=== PATIENT | female | born 1935 | race Caucasian/White ===

== ENCOUNTER 2019-07-26 14:26 | Outpatient (CLI) | payer MEDICARE, SELFPAY ==
--- NOTE | ~2019-07-26 | US_ITS ---
EXAMINATION: US arterial ankle brachial ind DATE: 07/26/2019 15:06 INDICATION: Polyneuropathy TECHNIQUE: Segmental pressures and plethysmographic and Doppler waveforms of the brachial and lower e xtremity arteries were obtained. COMPARISON: None. FINDINGS: Right and left brachial artery pressures of 103 mm Hg and 112 mm Hg, respectively, are concordant (no rmal difference <= 30 mmHg). The right ankle-brachial index (EFREN) is 1.35 (normal >= 0.9-1.0). The right great toe-brachial index (TBI) is 0.85 (normal >= 0.65). Arterial Doppler waveforms are biphasic with brisk systolic upstrokes at the right posterior tibial and dorsalis pedis arteries. The left EFREN is 1.40. The left TBI is 0.84. Arterial Doppler waveforms are biphasic with brisk systol ic upstrokes at both the left posterior tibial and dorsalis pedis arteries. IMPRESSION: 1. No significant arterial occlusive disease with normal bilateral ABIs and TBI's. Reviewed, dictated and finalized at location B. SERVICER IMPRESSION: 1. No significant arterial occlusive disease with normal bilateral ABIs and TBI 's.
== END 2019-07-26 14:27 | disposition home or self-care (01) ==
LOC: ANHIMG 14:34
PROVIDERS: PCP Family Medicine; Visit Provider Family Medicine
DX: G62.9 Polyneuropathy, unspecified (principal); I73.9 Peripheral vascular disease, unspecified
CPT/HCPCS: 93922